=== PATIENT | female | born 1945 | race Caucasian/White ===

== ENCOUNTER 2016-09-25 07:56 | Day surgery (SDC) | payer OTHER ==
[2016-09-19 12:11] VITALS: BMI 22.6
[2016-09-25] MEDS ORDERED: PROPOFOL 20 ML ONE ×2 (07:58)
[2016-09-25 09:51] VITALS: TEMP 97.3
[2016-09-25 10:11] VITALS: PULSE 76
[2016-09-25 10:38] VITALS: BP 128/70
== END 2016-09-25 10:30 | disposition home or self-care (01) ==
LOC: FASU-ENDO 07:56
PROVIDERS: ATTEND Internal Medicine Gastroenterology
PROC: 0DJD8ZZ Inspection of Lower Intestinal Tract, Via Natural or Artificial Opening Endoscopic (ICD-10-PCS; principal; 2016-09-25 09:21)
DX: Z86.010 Personal history of colon polyps (principal); Z80.0 Family history of malignant neoplasm of digestive organs